=== PATIENT | female | born 1955 | race Caucasian/White ===

== ENCOUNTER 2021-06-21 10:50 | Inpatient (IN) | payer OTHER, SELFPAY ==
[~2021-06-21] VITALS: Ht 160 cm; Wt 80.3 kg
[2021-06-21 10:53] VITALS: BP 154/66
--- NOTE | 2021-06-21 11:07 | NUR ---
65 Y/O FEMALE C/O CHEST PAIN 10/19 DESCRIBES SQUEEZING NON-RADIATING [id number] REFERRED FROM [facility] FOR ABNORMAL EKG. DENIES FEVER/CHILLS. DENIES N/V. PMH: THYROID REMOVAL, HLD NKA
--- NOTE | 2021-06-21 11:09 | NUR ---
DR. BENTLEY WITH PT AT BEDSIDE FOR FURTHER EVALUATION.
[2021-06-21] MEDS ORDERED: ASPIRIN 81 MG TAB.CHEW PO ONE (11:15)
--- NOTE | 2021-06-21 11:16 | NUR ---
PT AMBULATED TO ER BED 7 WITH A STEADY GAIT.
[2021-06-21 12:16] LABS: ANION GAP 11.3 (8-16); CARBON DIOXIDE 27.6 mmol/L (21-32); POTASSIUM 3.9 mmol/L (3.5-5.1); TOTAL BILIRUBIN 0.6 mg/dL (0.0-1.0)
[2021-06-21 12:26] LABS: BASOPHILS % (AUTO) 0.5 % (0.0-2.0); EOSINOPHILS # (AUTO) 0.1 K/uL (0-0.4); EOSINOPHILS % (AUTO) 1.1 % (0.0-4.0); HEMATOCRIT 38.7 % (36-48); HEMOGLOBIN 13.2 g/dL (12.0-16.0); LYMPHOCYTES # (AUTO) 1.8 K/uL (2.5-16.5); LYMPHOCYTES % (AUTO) 36.4 % (20.5-51.1); MEAN CORPUSCULAR HEMOGLOBIN 33 pg (27-31); MEAN CORPUSCULAR HGB CONC 34 g/dL (33-37); MEAN CORPUSCULAR VOLUME 97.2 fL (80-94); MONOCYTES # (AUTO) 0.4 K/uL (0.8-1.0); MONOCYTES % (AUTO) 8.4 % (1.7-9.3); NEUTROPHILS # (AUTO) 2.6 K/uL (1.8-7.7); NEUTROPHILS % (AUTO) 53.6 % (42.2-75.2); PLATELET COUNT (AUTO) 251 K/uL (140-450); RED BLOOD CELL COUNT(AUTO) 3.98 MIL/uL (4.20-5.40); RED CELL DISTRIBUTION WIDTH 13.2 % (11.6-13.7); WHITE BLOOD COUNT (AUTO) 4.8 K/uL (4.8-10.8)
[2021-06-21 12:30] LABS: ALBUMIN 3.5 g/dL (3.4-5.0); CREATININE 0.6 mg/dL (0.6-1.3)
--- NOTE | 2021-06-21 12:39 | NUR ---
PT RESTING IN BED, VSS, WILL CONTINUE TO MONITOR.
--- NOTE | 2021-06-21 16:57 | NUR ---
NARCISA SWAB DONE AND WALKED TO THE LAB.
--- NOTE | 2021-06-21 17:25 | NUR ---
65 Y/O F C/O CHEST PAIN 10/19, ON AND OFF FOR 2 WEKS. PT HAD ABNORMAL EKG IN TRIAGE. PT PENDING ADMISSION FOR CHEST PAIN AND ABNORMAL EKG. NARCISA SWAB WAS DONE AND WALKED TO THE LAB. PT RESTING COMFORTABLE WITH AT BEDSIDE. PMH: HDL, HYPOTHYROID, THYROID REMOVAL NKA
[2021-06-21] MEDS ORDERED: DOCUSATE SODIUM 100 MG GELCAP PO PRN (17:55)
[2021-06-21] MEDS ORDERED: MORPHINE SULFATE 2 MG/ML SYR IVP PRN (17:55)
[2021-06-21] MEDS ORDERED: ACETAMINOPHEN 325 MG TAB PO PRN (17:55)
[2021-06-21] MEDS ORDERED: SODIUM PHOS / POTASSIUM PHOS 1 PKT PDR PO PRN (17:55)
[2021-06-21] MEDS ORDERED: HYDROcodone/APAP 5/325 MG 1 TAB TAB PO PRN (17:55)
[2021-06-21] MEDS ORDERED: ONDANSETRON 4 MG/2 ML VIAL IM/IVP PRN (17:55)
[2021-06-21] MEDS ORDERED: POTASSIUM CHLORIDE 10 MEQ TABER PO PRN (17:55)
[2021-06-21] MEDS ORDERED: MAGNESIUM OXIDE 400 MG TAB PO PRN (17:55)
[2021-06-21 18:24] LABS: MAGNESIUM 2.1 mg/dL (1.8-2.4); PHOSPHORUS 3.9 mg/dL (2.5-4.9)
--- NOTE | 2021-06-21 18:35 | NUR ---
RECEIVED REPORT FROM ED NURSE. AWAITING PT ARRIVAL TO [facility]
--- NOTE | 2021-06-21 18:37 | NUR ---
Patient will be admitted to care of WILLIAM OSUNA. Admited to TELE. Will go to [id number]. Belongings list completed. Report to LUIS A CYR.
--- NOTE | 2021-06-21 18:54 | NUR ---
The patient's care was reviewed and supervised by Yas Cedillo RN.
--- NOTE | 2021-06-21 18:59 | NUR ---
PT TRANSFERRED TO [facility]. PT STABLE. MRSA SWAB COMPLETED.
--- NOTE | 2021-06-21 19:12 | NUR ---
ENDORSED PT TO [employer] PACKAGING MACHINE OPERATOR NURSE
--- NOTE | 2021-06-21 19:13 | NUR ---
RECEIVED BEDSIDE REPORT FROM DAY RN. PT IS AAOX4 MALTESE SPEAKING ONLY. PT OBSERVED SITTING UP IN BED WATCHING TV WITH FAMILY MEMBER AT BEDSIDE. DENIES ANY DISCOMFORT AT THIS TIME. DX CHEST PAIN WILL TREND TROP FIRST TROP NEGATIVE. RAC 20G INF INFUSING PER ORDERS. POC REVIEWED WITH PT. ALL NEEDS MET. WILL CONTINUE TO MONITOR.
[2021-06-21 20:00] VITALS: BP 133/91
--- NOTE | 2021-06-21 20:00 | NUR ---
VSS. SANDWICH GIVEN PER REQUEST. PT DENIES CP. ALL NEEDS MET. CALL LIGHT IS WITHIN REACH.
[2021-06-21] MEDS: NACL 0.9% 1,000 ML IV SCH (20:06)
--- NOTE | 2021-06-21 22:25 | NUR ---
PT RESTING IN BED WATCHING TV DENIES ANY COMPLAINTS. ALL SAFETY MEASURES ARE IN PLACE. WILL CONTINUE TO MONITOR
[2021-06-22] VITALS: BP 118/73
--- NOTE | 2021-06-22 00:25 | NUR ---
VITAL SIGNS ARE WITHIN NORMAL LIMITS. ALL NEEDS MET. CALL LIGHT IS WITHIN REACH. WILL CONTINUE TO MONITOR.
--- NOTE | 2021-06-22 02:09 | NUR ---
ROUNDS MADE. PT OBSERVED LAYING IN BED WITH EYES CLOSED APPEARS TO BE ASLEEP. CHEST RISE AND FALL NOTED. CALL LIGHT IS WITHIN REACH.
[2021-06-22 04:00] VITALS: BP 130/74
--- NOTE | 2021-06-22 04:15 | NUR ---
VITAL SIGNS ARE WITHIN NORMAL LIMITS. ALL NEEDS MET. CALL LIGHT IS WITHIN REACH.
[2021-06-22 06:10] LABS: BASOPHILS % (AUTO) 0.7 % (0.0-2.0); EOSINOPHILS # (AUTO) 0.1 K/uL (0-0.4); EOSINOPHILS % (AUTO) 1.3 % (0.0-4.0); HEMATOCRIT 39.5 % (36-48); HEMOGLOBIN 13.4 g/dL (12.0-16.0); LYMPHOCYTES # (AUTO) 1.8 K/uL (2.5-16.5); LYMPHOCYTES % (AUTO) 36.2 % (20.5-51.1); MEAN CORPUSCULAR HEMOGLOBIN 33 pg (27-31); MEAN CORPUSCULAR HGB CONC 34 g/dL (33-37); MEAN CORPUSCULAR VOLUME 96.6 fL (80-94); MONOCYTES # (AUTO) 0.5 K/uL (0.8-1.0); MONOCYTES % (AUTO) 9.6 % (1.7-9.3); NEUTROPHILS # (AUTO) 2.6 K/uL (1.8-7.7); NEUTROPHILS % (AUTO) 52.2 % (42.2-75.2); PLATELET COUNT (AUTO) 253 K/uL (140-450); RED BLOOD CELL COUNT(AUTO) 4.09 MIL/uL (4.20-5.40); RED CELL DISTRIBUTION WIDTH 13.2 % (11.6-13.7)
[2021-06-22 06:15] LABS: ANION GAP 11.2 (8-16); CARBON DIOXIDE 27.9 mmol/L (21-32); CREATININE 0.6 mg/dL (0.6-1.3); POTASSIUM 4.1 mmol/L (3.5-5.1)
--- NOTE | 2021-06-22 07:08 | NUR ---
GAVE BEDSIDE REPORT TO DAY RN. PT ENDORSED IN STABLE CONDITION.
--- NOTE | 2021-06-22 07:30 | NUR ---
RECEIVED REPORT FROM FIRE ASSISTANT NURSE FOR CONTINUITY OF CARE, POC DISCUSSED. PT IS STABLE IN BED ON ROOM AIR WITH CHEST RISING AND FALLING EVEN AND UNLABORED. PT REPORTS ALL NEEDS CURRENTLY MET. ALL SAFETY MEASURES IN PLACE, CALL LIGHT WITHIN REACH. WILL CONTINUE TO MONITOR.
[2021-06-22 08:00] VITALS: BP 138/80
[2021-06-22] MEDS ORDERED: PANTOPRAZOLE 40 MG TABEC PO SCH (09:00)
--- NOTE | 2021-06-22 09:30 | NUR ---
JUDY MEDICATION ADMINISTERED PER MD ORDER, PT TOLERATED ADMINISTRATION. PT EDUCATION PROVIDED. PT DENIED CHEST PAIN AT THIS TIME. ALL SAFETY MEASURES IN PLACE, CALL LIGHT WITHIN REACH. WILL CONTINUE TO MONITOR.
[2021-06-22 12:00] VITALS: BP 134/73
--- NOTE | 2021-06-22 13:02 | NUR ---
AT BEDSIDE, ALL QUESTIONS ANSWERED. REPORTS ALL NEEDS ARE MET AND NO CHEST PAIN AT THIS TIME.
--- NOTE | 2021-06-22 16:26 | NUR ---
DC PLANNING: CM SPOKE WITH THE PATIENT AND SPOUSE AT BEDSIDE, CONFIRMED HER ADDRESS AND PHONE NUMBER PER [employer]ACE [employer]. THE PATIENT LIVES IN A SINGLE STORY HOUSE WITH HER AND DAUGHTER. SHE IS INDEPENDENT IN ALL ACTIVITIES AND HAS NO DME OR H/O HOME HEALTH. SHE SEES HER PCP EVERY 3 MONTHS OR NEEDED AND HAS NO DC NEEDS. FABRICE WILL FOLLOW. Addendum: 06/22/21 at 1627 by Irma Wiggins CM Amended: Links added.
[2021-06-22] MEDS: NACL 0.9% 1,000 ML IV SCH (17:15)
[2021-06-22] MEDS ORDERED: DICL100G5 TP (17:17)
--- NOTE | 2021-06-22 17:55 | NUR ---
PT DISCHARGED IN STABLE CONDITION WITH AT BEDSIDE. ALL QUESTIONS ANSWERED. PT HAS ALL BELONGINGS. PT IV AND TELE BOX REMOVED. ALL NEEDS MET. PT IN STABLE CONDITION
== END 2021-06-22 18:02 | disposition home or self-care (01) | DRG 206 ==
LOC: MED 10:50 → MTU 17:52
PROVIDERS: ADMIT Hospitalist; ATTEND Hospitalist
DX: M94.0 Chondrocostal junction syndrome [Tietze] (principal); E03.9 Hypothyroidism, unspecified; E78.5 Hyperlipidemia, unspecified; I10 Essential (primary) hypertension; Z20.822 Contact with and (suspected) exposure to COVID-19; Z79.899 Other long term (current) drug therapy
CPT/HCPCS: 36415; 71045; 80048; 80053; 83735; 83880; 84100; 84484; 85025; 85610; 85730; 87081; 93005; 99285